=== PATIENT | female | born 1965 | race Caucasian/White ===

== ENCOUNTER 2016-02-27 16:21 | Emergency (ER) | payer OTHER ==
[2016-02-27 16:33] VITALS: RESP 16; TEMP 97.9
--- NOTE | 2016-02-27 16:58 | CPEKG ---
Heart Rate: 76 RR Interval: 789 P-R Interval: 172 QRSD Interval: 80 QT Interval: 368 QTC Interval: 414 P [place]: 82 QRS [place]: 24 T Wave [place]: 54 EKG Severity - BORDERLINE ECG - EKG Impression: SINUS RHYTHM EKG Impression: BORDERLINE R WAVE PROGRESSION, ANTERIOR LEADS Electronically Signed By: Sam Zavala 27-Feb-2016 19:46:24
--- NOTE | 2016-02-27 17:07 | EDPHY ---
H & P Stated Complaint: Chest pain - left side for 7 days. Time Seen by Provider: 02/27/16 17:06 - Personal History LMP (Females 10-55): 15-21 Days Ago Current Tetanus Diphtheria and Acellular Pertussis (TDAP): Yes - Medical/Surgical History Hx Asthma: No Hx Chronic Respiratory Disease: No Hx Diabetes: No Hx Cardiac Disease: No Hx Renal Disease: No Hx Cirrhosis: No Hx Alcoholism: No Hx HIV/AIDS: No Hx Splenectomy or Spleen Trauma: No Other PMH: Lupus. - Social History Smoking Status: Never smoked Constitutional: Initial Vital Signs Temperature (C) 36.6 C 02/27/16 16:29 Heart Rate 90 02/27/16 16:29 Respiratory Rate 16 02/27/16 16:29 Blood Pressure 108/61 02/27/16 16:29 O2 Sat (%) 98 02/27/16 16:29 O2 Delivery Mode Room Air Allergies/Adverse Reactions: gluten Allergy (Verified 02/27/16 16:33) Medical Decision Making ED Course/Re-evaluation: CHIEF COMPLAINT: Chest pain HISTORY OF PRESENT ILLNESS: The patient is a 51 year old female with history of lupus, presenting with intermittent chest pain for the past 2 weeks. She has experienced 5 episodes of chest tightness. Last night the pain woke her from sleep. Her pain is unchanged with exertion. She additionally reports general fatigue. She denies cough, nausea, shortness of breath, or lower extremity pain or swelling. No recent sickness. REVIEW OF SYSTEMS: A 10 point review of systems was performed and is negative with the exception of the elements mentioned in the history of present illness. PHYSICAL EXAM: HR, BP, O2 Sat, RR. Temp noted General Appearance: Alert, well hydrated, appropriate, and non-toxic appearing. Head: Atraumatic without scalp tenderness or obvious injury Eyes: Pupils equal, round, reactive to light and accommodation, EOMI, no trauma , no injection. Ears: Clear bilaterally, no perforation, normal landmarks Nose: Atraumatic, no rhinorrhea, clear. Throat: There is no erythema or exudates, no lesions, normal tonsils, mucus membranes moist. Neck: Supple, 2+ carotid upstroke, nontender, no lymphadenopathy. Respiratory: No retractions, no distress, no wheezes, and no accessory muscle use. Lungs are clear to auscultation bilaterally. Cardiovascular: Regular rate and rhythm, no murmurs, rubs, or gallops. Bilateral carotid, radial, dorsalis pedis, and posterior tibial pulses intact. Good capillary refill all extremities. Gastrointestinal: Abdomen is soft, nontender, non-distended, no masses, no rebound, no guarding, no peritoneal signs. Musculoskeletal: Normal active ROM of all extremities, atraumatic. Neurological: Alert, appropriate, and interactive. The patient has normal DTRs and non-focal cranial nerves, motor, sensory, and cerebellar exam. Skin: No rashes, good turgor, no nodules on palpation. Past medical history: Lupus, Opal thyroid disease Past surgical history: Family history: Noncontributory Social history: DIAGNOSTICS/PROCEDURES/CRITICAL CARE TIME: The 12 lead EKG was interpreted by myself. See hard copy and/or "tracemaster" electronic copy for interpretation: Sinus rhythm. Borderline R wave progression , anterior leads. Study: X-ray of the chest was obtained. Results: Hyperexpansion is seen suggestive of airways disease with no superimposed pneumonia identified. Images were interpreted by the radiologist, Dr. Pollard. I viewed the images myself on the PACS system. DIFFERENTIAL DIAGNOSIS: The differential diagnosis for the patient's chest pain included but was not limited to myocardial ischemia, pulmonary embolus, chest wall pain, pleural inflammation, and pulmonary infectious causes. MEDICAL DECISION MAKING: The patient is a 51 year old female with history of lupus, presenting with intermittent chest pain for the past 2 weeks. Last night the pain woke her from sleep. She describes the pain as an aching sensation. Her EKG is normal. She received 324mg Aspirin. Plan for chest x-ray, troponin, and d-dimer. I suspect her Troponin to be sensitive since she has ongoing pain for several days. Troponin and D-dimer are normal. - Data Points Laboratory Results: Laboratory Results 02/27/16 16:51 02/27/16 16:51 02/27/16 16:51 WBC 4.51 10^3/uL (3.80-9.50) RBC 4.64 10^6/uL (4.18-5.33) Hgb 14.5 g/dL (12.6-16.3) Hct 41.2 % (38.0-47.0) MCV 88.8 fL (81.5-99.8) MCH 31.3 pg (27.9-34.1) MCHC 35.2 g/dL (32.4-36.7) RDW 11.7 % (11.5-15.2) Plt Count 261 10^3/uL (150-400) MPV 9.7 fL (8.7-11.7) Neut % (Auto) 61.9 % (39.3-74.2) Lymph % (Auto) 23.9 % (15.0-45.0) [place] % (Auto) 8.2 % (4.5-13.0) Eos % (Auto) 4.7 % (0.6-7.6) Baso % (Auto) 1.1 % (0.3-1.7) Nucleat RBC Rel Count 0.0 % (0.0-0.2) Absolute Neuts (auto) 2.79 10^3/uL (1.70-6.50) Absolute Lymphs (auto) 1.08 10^3/uL (1.00-3.00) Absolute Monos (auto) 0.37 10^3/uL (0.30-0.80) Absolute Eos (auto) 0.21 10^3/uL (0.03-0.40) Absolute Basos (auto) 0.05 10^3/uL (0.02-0.10) Absolute Nucleated RBC 0.00 10^3/uL (0-0.01) Immature Gran % 0.2 % (0.0-1.1) Immature Gran # 0.01 10^3/uL (0.00-0.10) ESR 7 MM/HR (0-30) D-Dimer 0.30 ug/mLFEU (0.00-0.50) Sodium 140 mEq/L (134-144) Potassium 3.8 mEq/L (3.5-5.2) Chloride 106 mEq/L (97-110) Carbon Dioxide 22 mEq/l (22-31) Anion Gap 12 mEq/L (8-16) BUN 10 mg/dL (7-23) Creatinine 0.6 mg/dL (0.6-1.0) Estimated GFR > 60 Glucose 93 mg/dL (70-100) Calcium 9.4 mg/dL (8.5-10.4) Troponin I < 0.012 ng/mL (0-0.034) NT-Pro-B Natriuret Pep 50 pg/mL (0-125) Medications Given: Discontinued Medications Aspirin (Aspirin) 324 mg PO EDNOW ONE Stop: 02/27/16 17:44 Last Admin: 02/27/16 18:04 Dose: 324 mg Sodium Chloride (Ns) 1,000 mls @ 0 mls/hr IV ONCE ONE PRN Reason: Wide Open Stop: 02/27/16 17:44 Last Admin: 02/27/16 18:04 Dose: 1,000 mls Departure - Departure Disposition: Home, Routine, Self-Care Clinical Impression: Chest pain Qualifiers: Chest pain type: unspecified Qualifier Code: (R07.9) Chest pain, unspecified Condition: Good Instructions: Chest Pain (ED) Additional Instructions: Call a environmental associate tomorrow to arrange a followup appointment. Referrals: Cecile Vinson MD [Primary Care Provider] - As per Instructions Ronald Miguel MD [Medical Doctor] - As per Instructions (Cardology referral) Report Scribed for: Sam Zavala Report Scribed by: Deborah Brown Date of Report: 02/27/16 Time of Report: 17:52
[2016-02-27] MEDS ORDERED: NS 1,000 ML IV ONE (17:43)
[2016-02-27] MEDS ORDERED: ASPIRIN 81 MG CHEWABLE TAB PO ONE (17:43)
[2016-02-27 17:53] LABS: % IMMATURE GRANULYOCYTES 0.2 % (0.0-1.1); ABSOLUTE IMMATURE GRANULOCYTES 0.01 10^3/uL (0.00-0.10); ADD DIFF? NO; ADD MORPH? NO; ADD SCAN? NO; ATYPICAL LYMPHOCYTE FLAG 10 (0-99); FRAGMENT RBC FLAG 0 (0-99); HEMATOCRIT 41.2 % (38.0-47.0); HEMOGLOBIN 14.5 g/dL (12.6-16.3); LEFT SHIFT FLG 0 (0-99); LIPEMIA HEMOLYSIS FLAG 90 (0-99); MEAN CELL HEMOGLOBIN 31.3 pg (27.9-34.1); MEAN CELL HEMOGLOBIN CONCENTR. 35.2 g/dL (32.4-36.7); MEAN CELL VOLUME 88.8 fL (81.5-99.8); MEAN PLATELET VOLUME 9.7 fL (8.7-11.7); PLATELET CLUMPS FLAG 0 (0-99); PLATELET COUNT 261 10^3/uL (150-400); RED BLOOD CELL COUNT 4.64 10^6/uL (4.18-5.33); RED CELL DISTRIBUTION WIDTH 11.7 % (11.5-15.2)
[2016-02-27 17:57] LABS: ANION GAP 12 mEq/L (8-16); CALCIUM 9.4 mg/dL (8.5-10.4); CARBON DIOXIDE 22 mEq/l (22-31); CHLORIDE 106 mEq/L (97-110); CREATININE 0.6 mg/dL (0.6-1.0); GLOMERULAR FILTRATION RATE > 60; GLUCOSE 93 mg/dL (70-100); POTASSIUM 3.8 mEq/L (3.5-5.2); SODIUM 140 mEq/L (134-144)
[2016-02-27 18:09] LABS: TROPONIN I < 0.012 ng/mL (0-0.034)
--- NOTE | 2016-02-27 18:31 | DX ---
PA and Lateral Chest Clinical Indications: Chest pain for several days in a 51-year-old female with a history of lupus; n o prior chest films are available for comparison. Findings: The lungs are clear. There is hyperexpansion seen with flattening of the hemidiaphragms no jasvir. A mild pectus the bottom deformity is seen. The heart size and pulmonary vascularity are normal. Pleural surfaces and bony thorax are negative for acute abnormality. Impression: Hyperexpansion is seen suggestive of airways disease with no superimposed pneumonia ident ified.
[2016-02-27 18:46] LABS: HEMATOCRIT 41.2 % (38.0-47.0)
[2016-02-27 19:15] VITALS: BP 119/73; PULSE 81; O2SAT 96
== END 2016-02-27 19:16 | disposition home or self-care (01) ==
DX: R07.9 Chest pain, unspecified (principal)

== ENCOUNTER → 2016-08-12 | Outpatient (CLI) | payer OTHER | LOC: BMCIMAGING 13:28 | PROVIDERS: ATTEND Physician Assistant Medical | DX: Z12.31 Encounter for screening mammogram for malignant neoplasm of breast (principal) | CPT/HCPCS: G0202 ==

== ENCOUNTER → 2017-11-16 | Outpatient (CLI) | payer OTHER | LOC: BMCIMAGING 14:57 | PROVIDERS: ATTEND Internal Medicine | DX: Z12.31 Encounter for screening mammogram for malignant neoplasm of breast (principal) ==